=== PATIENT | female | born 2000 | race Caucasian/White ===

== ENCOUNTER 2022-11-27 19:16 | Emergency (ER) | payer MEDICAID ==
[~2022-11-27] VITALS: Ht 157.5 cm; Wt 91.0 kg
[2022-11-27] MEDS ORDERED: IBUPROFEN 600MG TABLET PO STA (20:35)
[2022-11-27] MEDS ORDERED: IBUPROFEN 600MG TABLET PO NR (23:45)
[2022-11-28 00:02] VITALS: BP 148/98
[2022-11-28] MEDS ORDERED: IBUP-2029 MT (00:09)
== END 2022-11-28 00:18 | disposition home or self-care (01) ==
LOC: ER 19:16
DX: R07.89 Other chest pain (principal)
CPT/HCPCS: 71045; 93005; 99283